=== PATIENT | female | born 1965 | race Caucasian/White ===

== ENCOUNTER 2020-02-03 09:49 | Outpatient (CLI) | payer OTHER, SELFPAY ==
--- NOTE | ~2020-02-03 | DEXA_ITS ---
Bone Density Report Name: Kerri Brannon Age: 54 Sex: Female Ethnicity: White Date of : 1965 Indication: postmenopausal; prior fracture; asthma or emphysema; Referring Provider: Claudine Santiago Study: Bone densitometry was performed. Exam Date: February 03, 2020 Accession number: [id number] Bone Density: Region BMD T-score Z-score Classification AP Spine (L1-L4) 0.942 -1.0 0.2 Normal Femoral Neck (Left) 0.689 -1.4 -0.3 Osteopenia Total Hip (Left) 0.797 -1.2 -0.4 Osteopenia Total Hip Bilateral Avg 0.783 -1.3 -0.6 Osteopenia Femoral Neck (Right) 0.631 -2.0 -0.8 Osteopenia Total Hip (Right) 0.767 -1.4 -0.7 Osteopenia World Health Organization criteria for BMD impression classify patients as: Normal (T-score at or above -1.0), Osteopenia (T-score between -1.0 and -2.5), or Osteoporosis (T-score at or below -2.5). 10-year Fracture Risk(1): Major Osteoporotic Fracture 15% Hip Fracture 3.0% Reported Risk Factors: [place] (), Neck BMD=0.631, BMI=26.8, previous fracture, smoking (1) FRAX(R) Version 3.08. Fracture probability calculated for an untreated patient. Fracture probability may be lower if the patient has received treatment. Clinical Information Provided by Patient: Has had a low trauma fracture Smokes Has the following medical conditions: Asthma or Emphysema Patient maximum height was 64 Menopause Age: 33 No regular weight bearing exercise Does not regularly consume dairy products Drinks caffeinated beverages Onset of menses at age 11 Number of children 1 Impression: The patient has low bone mass, based on the Right Femoral Neck T-score. The patient has an estimated ten-year risk of hip fracture of 3% and an estimated ten-year risk of major fracture of 15%, based on the WHO FRAX algorithm. The patient has risk factors, including: smoking, previous fracture. Discussion: BONE DENSITY IS LOW AT ONE OR MORE SKELETAL SITES. THE PATIENT'S BMD AND CLINICAL RISK FACTORS CONTRIBUTE TO THIS PATIENT'S INCREASED RISK OF FRACTURE. This patient's lowest T-score is low at one or more skeletal sites. It meets the World Health Organization's (WHO) criteria for ?low bone mass? (T-score between -1.0 and -2.5). The patient's 10-year risk of hip fracture as calculated by FRAX exceeds the threshold where pharmacological therapy is recommended by the National Osteoporosis Foundation (NOF). However, all treatment decisions require clinical judgment and consideration of individual patient factors, including patient preferences, comorbidities, previous drug use, risk factors not captured in the FRAX model (e.g., frailty, falls, vitamin D deficiency, increased bone turnover, interval significant decline in bone density) and possible under or overestimation of fracture risk by FRAX. The patient should follow a heal
--- NOTE | ~2020-02-03 | XR_ITS ---
XR shoulder LT min 2V 02/03/2020 10:47 Indication: Left shoulder pain Procedure: 4 views left shoulder Comparison: No prior studies for comparison. Findings: There is mild polyarticular osteoarthritis of the left shoulder. No fracture, subluxation o r dislocation. No focal soft tissue abnormality.. Visualized lung parenchyma is unremarkable. Impression: 1: Mild polyarticular osteoarthritis of the left shoulder. Reviewed, dictated and finalized at location A. Impression: 1: Mild polyarticular osteoarthritis of the left shoulder.
== END 2020-02-03 09:50 | disposition home or self-care (01) ==
LOC: ANHIMG 09:54
PROVIDERS: PCP Family Medicine; Visit Provider Family Medicine
DX: M25.512 Pain in left shoulder (principal); M19.012 Primary osteoarthritis, left shoulder; M85.89 Other specified disorders of bone density and structure, multiple sites; Z78.0 Asymptomatic menopausal state
CPT/HCPCS: 73030; 77080

== ENCOUNTER 2020-06-02 14:15 | Outpatient (CLI) | payer OTHER, SELFPAY ==
--- NOTE | ~2020-06-02 | MM_ITS ---
EXAMINATION: MM screening [place] BI w [facility] HISTORY: Screening TECHNIQUE: Craniocaudal and mediolateral oblique 3-D tomosynthesis images were obtained and synthetic 2-D images were generated. CAD analysis was submitted and interpreted. COMPARISON: No prior mammogram is available for comparison at this institution. BREAST PARENCHYMAL COMPOSITION: There are scattered areas of fibroglandular density. FINDINGS: There is no evidence of suspicious mass, calcification, or architectural distortion to sugg est malignancy in either breast. There has been no suspicious interval change. IMPRESSION: 1. No mammographic evidence of malignancy. 2. Recommend routine screening mammography in one year. BI-RADS Category 1: Negative Reviewed, dictated and finalized at location A.
== END 2020-06-02 14:16 | disposition home or self-care (01) ==
LOC: ANHIMG 14:19
PROVIDERS: PCP Family Medicine; Visit Provider Obstetrics & Gynecology
DX: Z12.31 Encounter for screening mammogram for malignant neoplasm of breast (principal)
CPT/HCPCS: 77063; 77067

== ENCOUNTER 2020-10-23 00:24 | Outpatient (CLI) | payer OTHER, SELFPAY ==
[2020-10-24 00:20] LABS: SARS-CoV-2 RNA PCR Negative
== END 2020-10-23 00:25 | disposition home or self-care (01) ==
LOC: ANHCOVIDDT 00:24
PROVIDERS: PCP Physician Assistant; Visit Provider Internal Medicine Gastroenterology
DX: Z01.812 Encounter for preprocedural laboratory examination (principal); Z20.822 Contact with and (suspected) exposure to COVID-19
CPT/HCPCS: C9803; U0003; U0005

== ENCOUNTER 2020-10-27 00:56 | Day surgery (SDC) | payer OTHER, SELFPAY ==
[2020-10-21 15:05] VITALS: BMI 27.6
--- NOTE | 2020-10-26 13:46 | WPDANESEPPF ---
Anes - Initial Pre Proc Eval Procedure: Operation Date: 10/27/20 10:45 Proposed Procedures p Colonoscopy - Cuauhtemoc Rosado MD Date/Time: 10/26/20 13:46 Surgeon: Cuauhtemoc Rosado MD Pre Op Diagnosis: Abnormal CT Scan, Appendiceal Mass Patient Data Age: 55 Gender: F Height: 1.63 m Weight: 73 kg Allergies Allergy/AdvReac Type Severity Reaction Status Date / Time animal dander Allergy Mild Unknown Verified 10/27/20 09:44 bee pollen Allergy Mild Unknown Verified 10/27/20 09:44 egg Allergy Mild Unknown Verified 10/27/20 09:44 Sulfa (Sulfonamide Allergy Mild Rash Verified 10/27/20 09:44 Antibiotics) morphine AdvReac Mild Other Verified 10/27/20 09:44 Penicillins AdvReac Mild Nausea and Verified 10/27/20 09:44 Vomiting Home Medications Medication Instructions Recorded Confirmed Type aspirin 81 mg tablet,delayed 81 mg PO DAILY 10/13/19 10/27/20 History release calcium carbonate 500 mg (1,250 1 tablet PO DAILY 10/13/19 10/27/20 History mg)-vitamin D3 125 unit tablet clindamycin phosphate 1 % lotion 1 applic TOPICAL BID #60 ml 10/13/19 10/27/20 Rx krill [id number]-8-dha-epa 300 1 cap PO DAILY cap 10/13/19 10/27/20 History mg-90 mg (27 mg-45 mg) capsule magnesium 250 mg tablet 250 mg PO DAILY 10/13/19 10/27/20 History multivit and minerals-ferrous 15 ml PO DAILY 10/13/19 10/27/20 History gluconate 9 mg iron/15 mL oral liquid potassium gluconate 550 mg (90 mg) 550 mg PO DAILY 10/13/19 10/27/20 History tablet albuterol sulfate 90 mcg/actuation 2 puff INHALATION Q4-6H PRN #6.7 gm 12/24/19 10/27/20 Rx aerosol inhaler alprazolam 0.5 mg tablet 0.5 mg PO TID PRN #90 tablet 05/27/20 10/27/20 Rx erythromycin 250 mg tablet,delayed 250 mg PO BID #60 tablet 05/27/20 10/27/20 Rx release vitamin K2 40 mcg tablet 40 mcg PO DAILY 05/27/20 10/27/20 History coenzyme Q10 75 mg capsule 75 mg PO DAILY 10/11/20 10/27/20 History Patient hx anesthesia problems: none Family hx anesthesia problems: none PMFSH Past Medical History Medical History BMI 27.0-27.9,adult Breast cancer screening Chronic anxiety Colon cancer screening Hyperlipidemia Mild asthma Osteopenia Osteoporosis Rosacea Stiffness of left shoulder joint Tobacco abuse Surgical History Surgical History History of delivery History of cholecystectomy History of surgery on arm Family History Family History Mother Diabetes mellitus Hypertension Family history of cardiovascular disease Uterine cancer Father Hypertension Family history of cardiovascular disease Family history of coronary artery disease Carcinoma of colon Grandparent Diabetes mellitus Social History Social History Smoking packs per day: 1 Smoking cigarettes per day: 20.0 Years smoked: 40 Smoking pack-years: 40.00 Smoking status: Current every day smoker Tobacco type: cigarettes Additional smoking assessment comments: consumes 1 pack daily Alcohol intake: current Substance use: unknown Substance use type: unknown Living arrangements: with family 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
[2020-10-27 09:45] VITALS: BP 147/82; PULSE 106; RESP 16; TEMP 37.3; O2SAT 99; BMI 26.7
[2020-10-27] MEDS: LACTATED RINGERS 1,000 ML 150 ML IV CONT (10:00)
--- NOTE | 2020-10-27 11:07 | PM.HPGS ---
History of Present Illness History of Present Illness Consent: Risks, benefits, and alternatives have been discussed and questions answered. Patient agrees to proceed with procedure. Chief complaint: Abnormal CT Scan, Appendiceal Mass Narrative: Kerri Brannon is a 55 year old female that almost 3 months ago had dull intermittent abdominal pain. CT scan at another facility showed a 1.3cm mass at the base of the appendix with the rest of the appendix looking normal, never had colonoscopy. Review of Systems Constitutional: Constitutional: Denies headache(s) and Denies weakness Eyes: Eyes: Denies blurry vision ENT: Reports Normal hearing present, Denies headache(s) and Denies neck pain Cardiovascular: Cardiovascular: Denies chest pain and Denies dyspnea Respiratory: Respiratory: Denies dyspnea Gastrointestinal: Gastrointestinal: Reports no additional gastrointestinal complaints Genitourinary: Genitourinary: Denies dysuria Musculoskeletal: Musculoskeletal: Denies neck pain Integumentary/Breasts: Skin/Breast: Denies dry skin Neurologic: Reports Normal hearing present, Denies headache(s) and Denies weakness Psychiatric: Psychiatric: Denies anxiety Endocrine: Endocrine: Denies change in body appearance Hematologic/Lymphatic: Hematologic/Lymphatic: Denies easy bleeding Allergic/Immunologic: Allergic/Immunologic: Denies urticaria PMFSH Past Medical History Medical History BMI 27.0-27.9,adult Breast cancer screening Chronic anxiety Colon cancer screening Hyperlipidemia Mild asthma Osteopenia Osteoporosis Rosacea Stiffness of left shoulder joint Tobacco abuse Surgical History Surgical History History of delivery History of cholecystectomy History of surgery on arm Family History Family History Mother Diabetes mellitus Hypertension Family history of cardiovascular disease Uterine cancer Father Hypertension Family history of cardiovascular disease Family history of coronary artery disease Carcinoma of colon Grandparent Diabetes mellitus Social History Social History Smoking packs per day: 1 Smoking cigarettes per day: 20.0 Years smoked: 40 Smoking pack-years: 40.00 Smoking status: Current every day smoker Tobacco type: cigarettes Additional smoking assessment comments: consumes 1 pack daily Alcohol intake: current Substance use: unknown Substance use type: unknown Living arrangements: with family 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 Gender identity (if verbalized by the patient): Male Spiritual care concerns: No Meds Home Medications and Allergies Home Medications Medication Instructions Recorded Confirmed Type aspirin 81 mg tablet,delayed 81 mg PO DAILY 10/13/19 10/27/20 History release calcium carbonate 500 mg (1,250 1 tablet PO DAILY 10/13/19 10/27/20 History mg)-vitamin D3 125 unit tablet clindamycin phosphate 1 % lotion 1 applic TOPICAL BID #60 ml 10/13/19 10/27/20 Rx krill [id number]-[id number]-8-dha-epa 300 1 cap PO DAILY cap 10/13/19 10/27/20 History mg-90 mg (27 mg-45 mg) capsule magnesium 250 mg tablet 250 mg PO DAILY 10/13/19 10/27/20 History multivit and minerals-ferrous 15 ml PO DAILY 10/13/19 10/27/20 History gluconate 9 mg iron/15 mL oral liquid potassium gluconate 550 mg (90 mg) 550 mg PO DAILY 10/13/19 10/27/20 History tablet albuterol sulfate 90 mcg/actuation 2 puff INHALATION Q4-6H PRN #6.7 gm 12/24/19 10/27/20 Rx aerosol inhaler alprazolam 0.5 mg tablet 0.5 mg PO TID PRN #90 tablet 05/27/20 10/27/20 Rx erythromycin 250 mg tablet,delayed 250 mg PO BID #60 tablet 05/27/20 10/27/20 Rx release vitamin K2 40 mcg tablet 40 mcg PO DAILY 05/27/20 10/27/20 History coenzyme
[2020-10-27 11:34] VITALS: BP 91/50; PULSE 74; RESP 18; O2SAT 98
[2020-10-27 11:44] VITALS: BP 109/59; PULSE 79; RESP 20; O2SAT 98
[2020-10-27 11:54] VITALS: BP 120/69; PULSE 85; RESP 18; O2SAT 100
== END 2020-10-27 12:32 | disposition home or self-care (01) ==
PROVIDERS: PCP Physician Assistant; Referring Provider Surgery; Visit Provider Internal Medicine Gastroenterology
PROC: 0DJD8ZZ Inspection of Lower Intestinal Tract, Via Natural or Artificial Opening Endoscopic (ICD-10-PCS; CPT 45378; principal; 2020-10-27 10:45)
DX: K63.5 Polyp of colon (principal); K57.30 Diverticulosis of large intestine without perforation or abscess without bleeding; K64.8 Other hemorrhoids; E78.5 Hyperlipidemia, unspecified; F41.9 Anxiety disorder, unspecified; J45.909 Unspecified asthma, uncomplicated; M81.0 Age-related osteoporosis without current pathological fracture; F17.210 Nicotine dependence, cigarettes, uncomplicated
CPT/HCPCS: 45380; 45385; 88305; C9803; J2704; J7120; U0003; U0005

== ENCOUNTER 2020-11-02 01:24 | Outpatient (CLI) | payer OTHER, SELFPAY ==
[2020-11-02 19:19] LABS: SARS-CoV-2 RNA PCR Negative
== END 2020-11-02 01:25 | disposition home or self-care (01) ==
LOC: ANHCOVIDDT 01:25
PROVIDERS: PCP Physician Assistant; Visit Provider Surgery
DX: Z01.812 Encounter for preprocedural laboratory examination (principal); Z20.822 Contact with and (suspected) exposure to COVID-19
CPT/HCPCS: C9803; U0003; U0005

== ENCOUNTER 2020-11-02 08:57 | Outpatient (CLI) | payer OTHER, SELFPAY ==
--- NOTE | 2020-11-02 09:00 | ECG_ITS ---
Measurements Intervals [place] Rate: 82 P: 79 [place]: 130 QRS: 58 QRSD: 86 T: 64 QT: 348 QTc: 407 Interpretive Statements SINUS RHYTHM DELAYED PRECORDIAL R/S TRANSITION BASELINE ARTIFACT- I, II, III, AVR, AVL, AVF, V1-V6 BORDERLINE ECG Electronically Signed On 11-02-2020 9:26:47 REGULATORY ADMINISTRATOR by David Ha D.O.
[2020-11-02 09:51] LABS: Basophils Absolute Auto 0.1 K/mm3 (0.0-0.1); Basophils Percent Auto 1.5 % (0.2-1.2); Eosinophils Absolute Auto 0.2 K/mm3 (0-0.3); Hematocrit 43.5 % (37.0-47.0); Hemoglobin 14.8 g/dL (12.0-15.0); Immature Granulocyte Absolute 0.01 K/mm3 (0.00-0.031); Immature Granulocyte Percent A 0.1 % (0-0.5); Lymphocytes Absolute Auto 2.35 K/mm3 (0.9-3.2); Lymphocytes Percent Auto 28.9 % (18.3-44.2); Mean Corpuscular Hemoglobin 31.4 pg (26-34); Mean Corpuscular Volume 92.4 fl (80-100); Mean Platelet Volume 10.9 fl (7.4-10.4); Monocytes Absolute Auto 0.6 K/mm3 (0.1-0.6); Monocytes Percent Auto 7.6 % (2.6-8.5); Neutrophils Absolute Auto 4.8 K/mm3 (1.3-6.7); Neutrophils Percent Auto 58.9 % (45.5-73.1); Platelet Count Result 359 k/mm3 (150-375); Red Blood Count 4.71 M/mm3 (4.2-5.4); Red Cell Distribution Width 13.4 % (11.5-14.5); White Blood Count 8.1 K/mm3 (4.5-10.0)
[2020-11-02 10:05] LABS: Alanine Aminotransferase 18 U/L (4-35); Albumin Level 4.2 g/dL (3.5-5.1); Alkaline Phosphatase 86 U/L (38-126); Anion Gap 5 mmol/L (8-16); Aspartate Amino Transferase 24 U/L (14-36); Bilirubin,Total 0.4 mg/dL (0.2-1.3); Blood Urea Nitrogen 13 mg/dL (7-17); Calcium 9.3 mg/dL (8.4-10.2); Carbon Dioxide 33 mmol/L (22-30); Chloride 102 mmol/L (98-107); Estimated Glomerular Filt Rate > 60; Glucose 104 mg/dL (65-105); Potassium 4.5 mmol/L (3.4-5.0); Sodium 140 mmol/L (137-145)
== END 2020-11-02 08:58 | disposition home or self-care (01) ==
PROVIDERS: PCP Physician Assistant; Visit Provider Surgery
DX: K38.8 Other specified diseases of appendix (principal); Z72.0 Tobacco use
CPT/HCPCS: 36415; 80053; 85025; 93005

== ENCOUNTER 2020-11-05 01:57 | Day surgery (SDC) | payer OTHER, SELFPAY ==
[2020-11-01 19:14] VITALS: BMI 26.6
[2020-11-05] VITALS (7 sets, daily range): BP systolic 123–154; BP diastolic 58–89; PULSE 72–97; RESP 12–20; TEMP 37–37.2; O2SAT 97–100
--- NOTE | 2020-11-05 06:35 | WPDHPUPDATE1 ---
History and Physical Update Update Date/Time: 11/05/20 06:35 History and Physical has been reviewed, including an updated exam of the patient. There are changes in the patient's condition. Patient has had a colonoscopy which showed a dome like mass at the base the appendix within the cecum. This was about 1.3 cm which correlated to the size on recent CT scan. The path on the biopsies of this showed benign changes. Risks, benefits, and alternatives of a appendectomy with resection of a short sleeve of cecum in order to take complete base of the appendix has been described to the patient. Plan to do this laparoscopically with possibility of needing to open. Have been discussed and questions answered. Patient agrees to proceed with procedure.
--- NOTE | 2020-11-05 06:53 | WPDANESEPPF ---
Anes - Initial Pre Proc Eval Procedure: Operation Date: 11/05/20 07:30 Proposed Procedures p Laparoscopic Appendectomy With Excision Of The Appendiceal Mucocele - Sachin Marley MD Date/Time: 11/05/20 06:53 Surgeon: Sachin Marley MD Pre Op Diagnosis: Appendicitis Mucocele Patient Data Age: 55 Gender: F Height: 5 ft 4 in Weight: 70.31 kg Allergies Allergy/AdvReac Type Severity Reaction Status Date / Time animal dander Allergy Mild Unknown Verified 10/27/20 09:44 bee pollen Allergy Mild Unknown Verified 10/27/20 09:44 egg Allergy Mild Unknown Verified 10/27/20 09:44 Sulfa (Sulfonamide Allergy Mild Rash Verified 10/27/20 09:44 Antibiotics) tomato Allergy Swelling Verified 11/01/20 18:57 of Lip/Tongue/Throat morphine AdvReac Mild Other Verified 10/27/20 09:44 Penicillins AdvReac Mild Nausea and Verified 10/27/20 09:44 Vomiting berries Allergy Rash Uncoded 11/01/20 18:58 Home Medications Medication Instructions Recorded Confirmed Type aspirin 81 mg tablet,delayed 81 mg PO DAILY 10/13/19 11/01/20 History release calcium carbonate 500 mg (1,250 1 tablet PO DAILY 10/13/19 11/01/20 History mg)-vitamin D3 125 unit tablet clindamycin phosphate 1 % lotion 1 applic TOPICAL BID #60 ml 10/13/19 11/01/20 Rx krill [id number]-xbdzk-6-dha-epa 300 1 cap PO DAILY cap 10/13/19 11/01/20 History mg-90 mg (27 mg-45 mg) capsule magnesium 250 mg tablet 250 mg PO DAILY 10/13/19 11/01/20 History multivit and minerals-ferrous 15 ml PO DAILY 10/13/19 11/01/20 History gluconate 9 mg iron/15 mL oral liquid potassium gluconate 550 mg (90 mg) 550 mg PO DAILY 10/13/19 11/01/20 History tablet albuterol sulfate 90 mcg/actuation 2 puff INHALATION Q4-6H PRN #6.7 gm 12/24/19 11/01/20 Rx aerosol inhaler alprazolam 0.5 mg tablet 0.5 mg PO TID PRN #90 tablet 05/27/20 11/01/20 Rx vitamin K2 40 mcg tablet 40 mcg PO DAILY 05/27/20 11/01/20 History coenzyme Q10 75 mg capsule 75 mg PO DAILY 10/11/20 11/01/20 History erythromycin [Mynor-Tab] 250 mg PO DAILY 11/01/20 11/01/20 History erythromycin 500 mg tablet 1 g PO .COMPLEX #6 tablet 11/02/20 Rx metoclopramide HCl 5 mg tablet 5 mg PO Q4-6H PRN #10 tablet 11/02/20 Rx neomycin 500 mg tablet 1 g PO .COMPLEX #6 tablet 11/02/20 Rx ondansetron HCl 4 mg tablet 4 mg PO Q6H #10 tablet 11/04/20 Rx Patient hx anesthesia problems: none Family hx anesthesia problems: none PMFSH Past Medical History Medical History Abnormal CT of the abdomen BMI 27.0-27.9,adult Breast cancer screening Chronic anxiety Colon cancer screening Hyperlipidemia Mild asthma Osteopenia Osteoporosis Rosacea Stiffness of left shoulder joint Tobacco abuse Surgical History Surgical History History of delivery History of cholecystectomy History of surgery on arm Family History Family History Mother Diabetes mellitus Hypertension Family history of cardiovascular disease Uterine cancer Father Hypertension Family history of cardiovascular disease Family history of coronary artery disease Carcinoma of colon Grandparent Diabetes mellitus Social History Social History Smoking packs per day: 1 Smoking cigarettes per day: 20.0 Years smoked: 40 Smoking pack-years: 40.00 Smoking status: Current every day smoker Tobacco type: cigarettes Second hand tobacco smoke exposure: No Additional smoking assessment comments: consumes 1 pack daily Alcohol intake: never Substance use: never Substance use type: unknown Living arrangements: with family 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
[2020-11-05] MEDS: LACTATED RINGERS 1,000 ML 30 ML IV CONT ×2 (06:54→09:09)
[2020-11-05] MEDS: BUPIVACAINE/EPINEPHRINE 0.25% 50 ML VIAL INFILTRATE (08:04)
--- NOTE | 2020-11-05 09:13 | PM.PROC ---
Procedure Note - Detailed Date of procedure: 11/05/20 Pre-op diagnosis: Appendicel Mucocele Post-op diagnosis: other (2. Incarcerated ventral incisional hernia near the umbilicus. 3. Omental adhesions to the anterior abdominal wall) Procedure performed: 1. Laparoscopic Appendectomy 2. Laparoscopic repair of incarcerated small ventral is incisional hernia near umbilicus 3. Lysis of minimal omental adhesions to the anterior abdominal wall. Description of procedure: The patient was seen again in the Holding Room. The risks, benefits, complications, treatment options, and expected outcomes were discussed with the patient and/or family. The possibilities of reaction to medication, pulmonary aspiration, perforation of viscus, bleeding, recurrent infection, finding a normal appendix, the need for additional procedures, failure to diagnose a condition, and creating a complication requiring transfusion or operation were discussed. There was concurrence with the proposed plan and informed consent was obtained. The site of surgery was properly noted/marked. The patient was taken to Operating Room, and a time out was preformed which identified this as the proper patient, and the procedure verified as laparoscopic appendectomy with excision of a sleeve of cecum, possible open. The patient was placed in the supine position and general anesthesia was induced, along with placement of orogastric tube, SCD hose, and a Campos catheter. The abdomen was prepped and draped in a sterile fashion. A 5 mm left subcostal incision was made and the peritoneal cavity was accessed using the Veress needle technique. I 1st tried with a standard size Veress needle but this did not reach the peritoneum. Therefore, we switched to a long Veress needle and this worked well on the 2nd pass. Once the abdomen was insufflated to 14 mmHg pressure a 5 mm XL trocar over the 0? 5 mm scope was carefully twisted into the abdomen via the umbilicus. The pneumoperitoneum was then established to steady pressure of 15 mm Hg. A 12 mm laparoscopic port was placed through a transverse suprapubic incision. An additional 5 mm cannula was then placed in the left lower quadrant of the abdomen at a level half way between the umbilicus and pubic symphysis under direct vision. A careful evaluation of the entire abdomen was carried out. The patient was placed in Trendelenburg and left lateral decubitus position. Several adhesions of the omentum to the anterior abdominal wall were noted. One was just above the pubic bone level anteriorly which was taken down with scissors prior to placement of the above-listed 12 mm suprapubic port. there was no hernia at this site. Separately noted was some omentum incarcerated into a very small only 1 cm fascial defect just below and to the left of the umbilicus. The small intestines were retracted in the cephalad and left lateral direction away from the pelvis and right lower quadrant. The patient was found to have a short appendix that was extending into the right side of the pelvis. As expected there was no evidence of perforation. After careful dissection and elevating the appendix 1 could see a rounded approximately 1.5 cm mass at the junction of the cecum and the base the appendix. The appendix was carefully dissected. I used Endo Neftali and the L hook on cautery to carefully take down any adhesions and we also rolled the cecum away from the lateral abdominal wall incising some of the lateral attachments to the retroperitoneum behind and to the right of the cecum. This allowed us to roll the cecum up and elevate it. Once it was free a 60 mm Ethicon endogastroentestinal stapler with a bowel load was placed across the mesoappendix, and a portion of the cecum such that firing it would excise a sleeve of normal cecum below the level of the mass described above. This was fired and hemostasis was checked along the staple line and appeared to be adequate. There was no evidence of bleeding, leak
[2020-11-05] MEDS: oxyCODONE HCL (*CRX) 5 MG TAB IR PO (09:51)
== END 2020-11-05 10:48 | disposition home or self-care (01) ==
PROVIDERS: PCP Physician Assistant; Visit Provider Surgery
PROC: 0DTJ4ZZ Resection of Appendix, Percutaneous Endoscopic Approach (ICD-10-PCS; CPT 44970; principal; 2020-11-05 07:30)
DX: C18.1 Malignant neoplasm of appendix (principal); K43.6 Other and unspecified ventral hernia with obstruction, without gangrene; K66.0 Peritoneal adhesions (postprocedural) (postinfection); F41.9 Anxiety disorder, unspecified; E78.5 Hyperlipidemia, unspecified; M81.0 Age-related osteoporosis without current pathological fracture; J45.909 Unspecified asthma, uncomplicated; L71.9 Rosacea, unspecified; F17.210 Nicotine dependence, cigarettes, uncomplicated; Z79.82 Long term (current) use of aspirin; Z79.51 Long term (current) use of inhaled steroids
CPT/HCPCS: 44970; 49653; 36415; 80053; 85025; 88304; 93005; A9270; C9803; J0330; J2250; J2405; J2704; J2710; J3010; J7030; J7120; U0003; U0005

== ENCOUNTER 2021-04-28 09:00 | Outpatient (CLI) | payer OTHER, SELFPAY | END 2021-04-28 09:01 | disposition home or self-care (01) | LOC: ANHAUDIO 09:04 | PROVIDERS: PCP Family Medicine; Visit Provider Otolaryngology | DX: H93.11 Tinnitus, right ear (principal); H90.3 Sensorineural hearing loss, bilateral | CPT/HCPCS: 92557; 92567 ==

== ENCOUNTER 2021-06-07 08:14 | Outpatient (CLI) | payer OTHER, SELFPAY ==
--- NOTE | ~2021-06-07 | CT_ITS ---
EXAMINATION: CT abdomen pelvis w con INDICATION: Low-grade mucinous neoplasm of the appendix TECHNIQUE: Computed tomographic images of the abdomen and pelvis were obtained after the administrati on of 100 cc of Omnipaque 350 intravenous contrast. The dose-length product (DLP) was 460.60 mGy-cm. Automated exposure control and iterative reconstruction technique were employed. COMPARISON: None available FINDINGS: The lung bases are clear. The heart size is normal. There is mild emphysema of the visualiz ed lung bases. A small sliding hiatal hernia is noted. The gallbladder is surgically absent. The live r, spleen, pancreas, and adrenal glands are normal. The kidneys are unremarkable. There is calcified atherosclerosis of the aorta and many of the other arteries. No pathologically enlarged abdominal or pelvic lymph nodes are identified. There is no free intraperitoneal gas or evidence of bowel obstruct ion. Colonic diverticulosis is present without evidence of diverticulitis. The appendix is surgically absent. There is mild lumbar spondylosis. IMPRESSION: 1. Changes of appendectomy without evidence of metastatic disease. Reviewed, dictated and finalized at location B.
== END 2021-06-07 08:15 | disposition home or self-care (01) ==
PROVIDERS: PCP Family Medicine; Referring Provider Surgery; Visit Provider Internal Medicine Hematology & Oncology
DX: C18.1 Malignant neoplasm of appendix (principal); K44.9 Diaphragmatic hernia without obstruction or gangrene; M47.816 Spondylosis without myelopathy or radiculopathy, lumbar region; K57.30 Diverticulosis of large intestine without perforation or abscess without bleeding
CPT/HCPCS: 74177; Q9967

== ENCOUNTER 2021-06-15 09:14 | Outpatient (CLI) | payer OTHER, SELFPAY ==
--- NOTE | ~2021-06-15 | MM_ITS ---
EXAMINATION: MM screening [place] BI w ciar HISTORY: Screening TECHNIQUE: Craniocaudal and mediolateral oblique 3-D tomosynthesis images were obtained and synthetic 2-D images were generated. CAD analysis was submitted and interpreted. COMPARISON: 06/02/2020 BREAST PARENCHYMAL COMPOSITION: There are scattered areas of fibroglandular density. FINDINGS: There is no evidence of suspicious mass, calcification, or architectural distortion to sugg est malignancy in either breast. There has been no suspicious interval change. IMPRESSION: 1. No mammographic evidence of malignancy. 2. Recommend routine screening mammography in one year. BI-RADS Category 1: Negative Reviewed, dictated and finalized at location A.
== END 2021-06-15 09:15 | disposition home or self-care (01) ==
PROVIDERS: PCP Family Medicine; Visit Provider Obstetrics & Gynecology
DX: Z12.31 Encounter for screening mammogram for malignant neoplasm of breast (principal)
CPT/HCPCS: 77063; 77067

== ENCOUNTER 2021-07-05 15:52 | Outpatient (CLI) | payer OTHER, SELFPAY ==
--- NOTE | ~2021-07-05 | XR_ITS ---
EXAMINATION: XR chest 2V DATE: 07/05/2021 16:20 INDICATION: Worsening shortness of breath. TECHNIQUE: Frontal and lateral views of the chest were obtained. COMPARISON: Chest 2 views 09/12/2018, CT abdomen and pelvis since 06/07/21 FINDINGS: There is mild scarring at the lung apices. There are lucencies in the lungs, consistent wit h emphysema. No pleural effusion or pneumothorax. The heart size is normal. There is a prominent left paracardial fat pad. Surgical clips in the right upper quadrant are likely from cholecystectomy. The re is mild chronic anterior wedging of multiple midthoracic vertebral bodies. IMPRESSION: 1. Emphysema. Reviewed, dictated and finalized at location A. IMPRESSION: 1. Emphysema.
--- NOTE | 2021-07-05 16:20 | ECG_ITS ---
Measurements Intervals [place] Rate: 81 P: 82 [place]: 150 QRS: 66 QRSD: 75 T: 75 QT: 340 QTc: 397 Interpretive Statements SINUS RHYTHM BASELINE ARTIFACT- I, II, AVR, AVL NORMAL ECG Electronically Signed On 07-05-2021 19:12:34 CDT by David Ha D.O.
== END 2021-07-05 15:53 | disposition home or self-care (01) ==
LOC: ANHIMG 15:57
PROVIDERS: PCP Family Medicine; Visit Provider Family Medicine
DX: R06.00 Dyspnea, unspecified (principal); R07.89 Other chest pain; R00.2 Palpitations; J43.9 Emphysema, unspecified
CPT/HCPCS: 71046; 93005

== ENCOUNTER → 2022-04-13 12:08 | Outpatient (CLI) | payer OTHER, SELFPAY ==
--- NOTE | ~2022-04-13 | XR_ITS ---
XR chest 2V 04/13/2022 12:32 Indication: Chest pain Procedure: 2 view chest Comparison: Comparison to multiple prior studies sequentially, with oldest reviewed study dated 01/17. Findings: Heart size normal. Lingular infiltrates may represent atelectasis or pneumonia. No signific ant effusion. No pneumothorax. No acute osseous abnormality. Impression: 1: Lingular infiltrates may represent atelectasis or developing pneumonia. No significant interval ch sandi. Reviewed, dictated and finalized at location A. Impression: 1: Lingular infiltrates may represent atelectasis or developing pneumonia. No s ignificant interval change.
== END ==
PROVIDERS: PCP Family Medicine; Visit Provider Family Medicine
DX: R07.89 Other chest pain (principal); R91.8 Other nonspecific abnormal finding of lung field
CPT/HCPCS: 71046

== ENCOUNTER → 2022-05-17 10:13 | Outpatient (CLI) | payer OTHER, SELFPAY ==
--- NOTE | ~2022-05-17 | XR_ITS ---
EXAMINATION: XR chest 2V 05/17/2022 10:30 INDICATION: Chest pain PROCEDURE: 2 view chest COMPARISON: Comparison to multiple prior studies sequentially, with oldest reviewed study dated 04/13. FINDINGS: The lungs are clear. The cardiomediastinal silhouette is within normal limits. There are no pleural effusions. There is no pneumothorax suspected. IMPRESSION: 1: NO ACUTE CARDIOPULMONARY DISEASE. Reviewed, dictated and finalized at location B.
== END ==
PROVIDERS: PCP Family Medicine; Visit Provider Family Medicine
DX: R07.89 Other chest pain (principal); R93.89 Abnormal findings on diagnostic imaging of other specified body structures
CPT/HCPCS: 71046

== ENCOUNTER 2022-06-06 09:28 | Outpatient (CLI) | payer OTHER, SELFPAY ==
--- NOTE | ~2022-06-06 | CT_ITS ---
EXAMINATION: CT abdomen pelvis w con INDICATION: Low-grade mucinous neoplasm of the appendix TECHNIQUE: Computed tomographic images of the abdomen and pelvis were obtained after the administrati on of 100 cc of Omnipaque 350 intravenous contrast. The dose-length product (DLP) was 401.62 mGy-cm. Automated exposure control and iterative reconstruction technique were employed. COMPARISON: 06/07/2021 FINDINGS: Minimal dependent atelectasis is present in the lung bases. The heart size is normal. There is small sliding hiatal hernia. The gallbladder is surgically absent. The liver, spleen, pancreas, a nd adrenal glands are normal. The kidneys are unremarkable. No pathologically enlarged abdominal or p elvic lymph nodes are identified. There is no free intraperitoneal gas or evidence of bowel obstructi on. Changes of appendectomy are again noted. Colonic diverticulosis is present without evidence of di verticulitis. There is mild lumbar spondylosis. IMPRESSION: 1. No evidence of metastatic disease. Reviewed, dictated and finalized at location B.
== END 2022-06-06 09:29 | disposition home or self-care (01) ==
PROVIDERS: PCP Family Medicine; Visit Provider Internal Medicine Hematology & Oncology
DX: D37.3 Neoplasm of uncertain behavior of appendix (principal)
CPT/HCPCS: 74177; Q9967

== ENCOUNTER 2022-07-07 14:42 | Outpatient (CLI) | payer OTHER, SELFPAY ==
--- NOTE | ~2022-07-07 | MM_ITS ---
EXAMINATION: MM screening [place] BI w cira HISTORY: Screening mammogram TECHNIQUE: Craniocaudal and mediolateral oblique 3-D tomosynthesis images were obtained and synthetic 2-D images were generated. CAD analysis was submitted and interpreted. COMPARISON: 06/15/2021, 06/02/2020 BREAST PARENCHYMAL COMPOSITION: There are scattered areas of fibroglandular density. FINDINGS: No suspicious mass, calcification, or architectural distortion are identified in either colton ast to suggest malignancy. There has been no suspicious interval change. IMPRESSION: 1. No mammographic evidence of malignancy. 2. Recommend routine screening mammography in one year. BI-RADS Category 1: Negative Reviewed, dictated and finalized at location A.
== END 2022-07-07 14:43 | disposition home or self-care (01) ==
LOC: ANHIMG 14:44
PROVIDERS: PCP Family Medicine; Visit Provider Obstetrics & Gynecology
DX: Z12.31 Encounter for screening mammogram for malignant neoplasm of breast (principal)
CPT/HCPCS: 77063; 77067

== ENCOUNTER → 2023-05-15 12:48 | Outpatient (CLI) | payer OTHER, SELFPAY ==
--- NOTE | ~2023-05-15 | US_ITS ---
EXAMINATION: US venous doppler [facility] DATE: 05/15/2023 13:18 INDICATION: Left lower limb edema. TECHNIQUE: Grayscale ultrasound images without and with compression and Doppler ultrasound images of the left lower extremity veins were obtained. COMPARISON: None. FINDINGS: The visualized portions of left common femoral vein, profunda (deep) femoral vein, femoral vein, popl iteal vein, peroneal veins, posterior tibial veins, and greater saphenous vein outflow are patent. IMPRESSION: 1. No deep venous thrombosis. Reviewed, dictated and finalized at location A.
== END ==
PROVIDERS: PCP Family Medicine; Visit Provider Physician Assistant
DX: R60.9 Edema, unspecified (principal)
CPT/HCPCS: 93971

== ENCOUNTER 2024-02-13 09:49 | Outpatient (CLI) | payer OTHER, SELFPAY ==
--- NOTE | ~2024-02-13 | MM_ITS ---
EXAMINATION: MM screening [place] [facility] w [facility] HISTORY: Screening mammogram TECHNIQUE: Craniocaudal and mediolateral oblique 3-D tomosynthesis images were obtained and synthetic 2-D images were generated. CAD analysis was submitted and interpreted. COMPARISON: 07/07/2022, 06/15/2021 bilateral screening mammogram examinations BREAST PARENCHYMAL COMPOSITION: There are scattered areas of fibroglandular density. FINDINGS: There is no evidence of suspicious mass, calcification, or architectural distortion to sugg est malignancy in either breast. There has been no suspicious interval change. IMPRESSION: 1. No mammographic evidence of malignancy. 2. Recommend routine screening mammography in one year. BI-RADS Category 1: Negative Reviewed, dictated and finalized at location B.
== END 2024-02-13 09:50 | disposition home or self-care (01) ==
LOC: ANHIMG 09:52
PROVIDERS: PCP Family Medicine; Visit Provider Obstetrics & Gynecology
DX: Z12.31 Encounter for screening mammogram for malignant neoplasm of breast (principal)
CPT/HCPCS: 77063; 77067

== ENCOUNTER 2024-02-13 10:16 | Outpatient (CLI) | payer OTHER, SELFPAY ==
--- NOTE | ~2024-02-13 | CT_ITS ---
CT Scan of the Chest without Contrast: Clinical Indication: Lung cancer screening, nicotine dependence Technique: Contiguous sections were acquired throughout the chest without intravenous contrast. Dose reduction technique was used on this scan by utilizing automated exposure control and iterative recon struction technique. The dose-length product (DLP) was 78.56 mGy-cm. Findings: There is no evidence of any significant mediastinal, hilar or axillary lymphadenopathy. The mediastin al soft tissues appear normal. There is no evidence of pleural or pericardial effusion. The lungs are clear. No pulmonary nodules or infiltrates are noted. Mild emphysema present. Images through the upper abdomen reveal no abnormalities. Impression: Lung RADS 1: Negative. 12 month follow-up screening CT advised. Reviewed, dictated and finalized at location . Impression: Lung RADS 1: Negative. 12 month follow-up screening CT advised.
== END 2024-02-13 10:17 ==
LOC: MICIMG 10:17
PROVIDERS: PCP Family Medicine; Referring Provider Internal Medicine Hematology & Oncology; Visit Provider Physician Assistant Medical
DX: Z12.2 Encounter for screening for malignant neoplasm of respiratory organs (principal); Z87.891 Personal history of nicotine dependence
CPT/HCPCS: 71271

== ENCOUNTER 2025-07-21 14:04 | Outpatient (CLI) | payer OTHER, SELFPAY ==
--- NOTE | ~2025-07-21 | DEXA_ITS ---
Bone Density Report Name: ROSALINO SANDERS Age: 59 Sex: Female Ethnicity: White Date of : 1965 Indication: osteopenia; cancer; asthma or emphysema; Referring Provider: ISACC GALLEGO Study: Bone densitometry was performed. Exam Date: July 21, 2025 Accession number: [id number] Bone Density: Region BMD T-score Z-score Classification AP Spine(L1-L4) 0.947 -0.9 0.6 Normal Femoral Neck (Left) 0.644 -1.8 -0.5 Osteopenia Total Hip (Left) 0.745 -1.6 -0.6 Osteopenia Femoral Neck (Right) 0.612 -2.1 -0.8 Osteopenia Total Hip (Right) 0.785 -1.3 -0.2 Osteopenia Total Hip Mean 0.765 -1.5 -0.4 Osteopenia World Health Organization criteria for BMD impression classify patients as: Normal (T-score at or above -1.0), Osteopenia (T-score between -1.0 and -2.5), or Osteoporosis (T-score at or below -2.5). 10-year Fracture Risk(1): Major Osteoporotic Fracture 11% Hip Fracture 2.6% Reported Risk Factors: [place] (), Neck BMD=0.612, BMI=27.1, smoking (1) FRAX(R) Version 3.08. Fracture probability calculated for an untreated patient. Fracture probability may be lower if the patient has received treatment. Previous Exams: -- Region Exam Age BMD T-score BMD Change BMD Change Date g/cm2 vs Baseline vs Previous -- AP Spine (L1-L4) 07/21/2025 59 0.947 -0.9 0.6% 0.6% 02/03/2020 54 0.942 -1.0 Total Hip(Left) 07/21/2025 59 0.745 -1.6 -6.5%* -6.5%* 02/03/2020 54 0.797 -1.2 Total Hip(Right) 07/21/2025 59 0.785 -1.3 2.4% 2.4% 02/03/2020 54 0.767 -1.4 -- *Denotes significance at 95% confidence level, LSC for AP Spine = 0.022 g/cm2, LSC for Total Hip = 0.027 g/cm2 Clinical Information Provided by Patient: Smokes Has used the following medications: Calcium Has the following medical conditions: Asthma or Emphysema, Cancer, colon cancer Patient maximum height was 64 Menopause Age: 33 Does not regularly consume dairy products Onset of menses at age 13 Number of children 1 Impression: The patient has low bone mass, based on the Right Femoral Neck T-score. The patient has an estimated ten-year risk of hip fracture of 2.6% and an estimated ten-year risk of major fracture of 11%, based on the WHO FRAX algorithm. The patient has risk factors, including: smoking. The BMD for the Total Hip(Left) decreased, changing by -6.5% since the last DXA exam. Discussion: BONE DENSITY IS LOW AT ONE OR MORE SKELETAL SITES. This patient's lowest T-score is low at one or more skeletal sites. It meets the World Health Organization's (WHO) criteria for ?low bone mass? (T-score between -1.0 and -2.5). The patient's 10-year risk of fracture as calculated by FRAX is less than the threshold where pharmacological therapy is recommended by the National Osteoporosis Foundation (NOF). However, all treatment decisions require clinical judgment and consideration of individual patient factors, including patient preferences, comorbidities, previous drug use, risk factors not captured in the FRAX model (e.g., frailty, falls, vitamin D deficiency, increased bone turnover, interval significant decline in bone density) and possible under or overestimation of fracture risk by FRAX. The patient should follow a healthful lifestyle (good nutrition with adequate calcium and vitamin D, and appropriate weight-bearing exercise). Follow-Up: Consider repeating this study in 2 years to reassess this patient's status, or sooner if there is some new clinical indication. Reported by: MARYSOL on 07/21/2025 2:44:00 PM. Reviewed, dictated and finalized at location A.
--- NOTE | ~2025-07-21 | MM_ITS ---
EXAMINATION: MM screening [place] [facility] w [facility] HISTORY: Screening TECHNIQUE: Craniocaudal and mediolateral oblique 3-D tomosynthesis images were obtained and synthetic 2-D images were generated. CAD analysis was submitted and interpreted. COMPARISON: Comparison to multiple prior studies sequentially, with oldest reviewed study dated , 06/02/2020 BREAST PARENCHYMAL COMPOSITION: There are scattered areas of fibroglandular density. FINDINGS: There is no evidence of suspicious mass, calcification, or architectural distortion to suggest malignancy in either breast. IMPRESSION: 1. No mammographic evidence of malignancy. 2. Recommend routine screening mammography in one year. BI-RADS Category 1: Negative Reviewed, dictated and finalized at location B.
--- NOTE | ~2025-07-21 | CT_ITS ---
EXAMINATION: CT lung screening DATE: 07/21/2025 14:51 INDICATION: Personal history of nicotine dependence TECHNIQUE: Computed tomography (CT) of the chest was performed without intravenous contrast. The dose-length product was 88.38 mGy-cm. Automated exposure control and iterative reconstruction technique were employed. COMPARISON: CT dated 02/13/2024 FINDINGS: Heart size normal. No significant pleural or pericardial effusion. No thoracic lymphadenopathy. Small hiatal hernia. No significant vascular abnormality. There is a 3 mm right upper lobe nodule unchanged. There is emphysema. No endobronchial lesions. No pneumothorax. No focal airspace consoli dation. No acute osseous abnormality. Mild wedge compression deformities of the midthoracic spine with accentuated kyphosis. No significant change. Moderate thoracic spondylosis. IMPRESSION: 1. Lung-RADS category 2: Benign appearance or behavior. Continue annual screening with noncontrast low-dose chest CT in 12 months. Reviewed, dictated and finalized at location O. IMPRESSION: 1. Lung-RADS category 2: Benign appearance or behavior. Continue annual screeni ng with noncontrast low-dose chest CT in 12 months.
== END 2025-07-21 14:05 | disposition home or self-care (01) ==
LOC: MICIMG 14:07
PROVIDERS: PCP Pediatrics; Visit Provider Student in an Organized Health Care Education/Training Program
DX: Z12.31 Encounter for screening mammogram for malignant neoplasm of breast (principal); Z12.2 Encounter for screening for malignant neoplasm of respiratory organs; M85.89 Other specified disorders of bone density and structure, multiple sites; Z78.0 Asymptomatic menopausal state; Z87.891 Personal history of nicotine dependence
CPT/HCPCS: 71271; 77063; 77067; 77080